=== PATIENT | female | born 1950 | race Caucasian/White ===

== ENCOUNTER → 2024-03-10 12:20 | Outpatient (REF) | payer OTHER, SELFPAY | LOC: WDC 12:20 | PROVIDERS: ATTENDING PHYSICIAN Nurse Practitioner Family; FAMILY PHYSICIAN Family Medicine | DX: Z12.31 Encounter for screening mammogram for malignant neoplasm of breast (principal) | CPT/HCPCS: 77063; 77067 ==

== ENCOUNTER → 2024-11-23 14:21 | Outpatient (REF) | payer OTHER, SELFPAY | LOC: RAD 14:21 | PROVIDERS: ATTENDING PHYSICIAN Physician Assistant | DX: M25.552 Pain in left hip (principal) | CPT/HCPCS: 73502 ==

== ENCOUNTER → 2025-03-11 12:50 | Outpatient (REF) | payer OTHER, SELFPAY | LOC: WDC 12:50 | PROVIDERS: ATTENDING PHYSICIAN Physician Assistant | DX: Z12.31 Encounter for screening mammogram for malignant neoplasm of breast (principal) | CPT/HCPCS: 77063; 77067 ==

== ENCOUNTER → 2025-04-05 10:27 | Outpatient (REF) | payer OTHER, SELFPAY | LOC: HWRAD 10:27 | PROVIDERS: ATTENDING PHYSICIAN Physician Assistant | DX: F17.210 Nicotine dependence, cigarettes, uncomplicated (principal) | CPT/HCPCS: 71271 ==

== ENCOUNTER → 2025-05-05 13:07 | Outpatient (REF) | payer OTHER, SELFPAY | LOC: MRI 3T 13:07 | PROVIDERS: ATTENDING PHYSICIAN Physician Assistant | DX: M76.61 Achilles tendinitis, right leg (principal) | CPT/HCPCS: 73721 ==

== ENCOUNTER 2025-06-15 12:43 | Outpatient (RCR) | payer OTHER, SELFPAY | END 2025-06-22 23:59 | disposition home or self-care (01) | LOC: RPT 12:43 | PROVIDERS: ATTENDING PHYSICIAN Orthopaedic Surgery; FAMILY PHYSICIAN Family Medicine | DX: S86.011D Strain of right Achilles tendon, subsequent encounter (principal); Z73.6 Limitation of activities due to disability; R26.89 Other abnormalities of gait and mobility; X50.1XXD Overexertion from prolonged static or awkward postures, subsequent encounter | CPT/HCPCS: 97110; 97162; 97530 ==